=== PATIENT | male | born 1985 | race Caucasian/White ===

== ENCOUNTER 2016-12-25 21:37 | Emergency (ER) | payer BC ==
[~2016-12-25] VITALS: Ht 170.2 cm; Wt 72.7 kg
[~2016-12-25 21:37] MED LIST: ONDA4TAB35 PO
[2016-12-25 21:49] VITALS: Ht 170.2 cm; Wt 72.7 kg
[2016-12-25] MEDS ORDERED: KETOROLAC 60 MG INJ IM STA (22:01)
--- NOTE | 2016-12-25 22:10 | ERD ---
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 He states he was running when he jolted his leg forward and heard and felt his ankle snap. He currently reports a 7 out of 10 pain on the pain scale. Pain is throbbing. He denies any numbness or tingling of the ankle or foot. He denies any head injury or loss of consciousness. There are no other symptoms to report at this time. (HILARIO LUCAS PA-C) ROS All systems reviewed and are negative except as per history of present illness. (HILARIO LUCAS PA-C) Medications Home Meds Active Scripts Ondansetron Hcl* (Zofran* ODT) 4 mg -ODT Tab.disper, 4 MG PO Q6 Y for NAUSEA AND /OR VOMITING, #30 TAB Prov:BJORN JOHNSON MD 02/09/16 Allergies Allergies: Coded Allergies: No Known Allergy (Unverified , 02/09/16) PMhx/Soc Medical and Surgical Hx: pt denies Surgical Hx History of Surgery: No Anesthesia Reaction: No Hx Neurological Disorder: No Hx Respiratory Disorders: No Hx Cardiac Disorders: No Hx Psychiatric Problems: No Hx Miscellaneous Medical Probl: Yes (GASTRITIS ) Hx Alcohol Use: Yes (OCCASIONAL) Hx Substance Use: No Hx Tobacco Use: No Smoking Status: Never smoker (HILARIO LUCAS PA-C) FmHx Noncontributory for chief complaint (HILARIO LUCAS PA-C) Physical Exam Vitals Vital Signs Date Time Temp Pulse Resp B/P Pulse Ox O2 Delivery O2 Flow Rate FiO2 12/25/16 21:49 98.1 79 20 156/86 99 (HILARIO LANG) Physical Exam INITIAL VITAL SIGNS: Reviewed by me. GENERAL: Alert and interactive. No acute distress. HEAD: Head is normocephalic and atraumatic. EYES: EOMI. No scleral icterus. No conjunctival injection. ENT: Moist mucosa. NECK: Supple. Full range of motion. RESPIRATORY: Normal respiratory effort. Clear breath sounds bilaterally. No wheezing, rales, or rhonchi. CV: Regular rate and rhythm. Normal S1 S2. No S3 or S4. No murmurs. ABDOMEN: Soft, non-distended, non-tender. No guarding. No rebound. No masses. EXTREMITIES: Tenderness to palpation with associated edema and ecchymosis of the lateral malleolus. There is very limited range of motion of the ankle secondary to pain. The right lower extremity is normal in appearance. SKIN: Warm and dry. NEUROLOGIC: Alert and oriented x 4. Speech is normal. Moves all extremities equally. No motor or sensory deficits noted. (HILARIO LUCAS PA-C) Results 24 hrs Current Medications Medications (Trade) Dose Ordered Sig/Nagi Route PRN Reason Start Time Stop Time Status Last Admin Dose Admin Ketorolac Tromethamine (Toradol) 60 mg ONCE STAT IM 12/25/16 22:01 12/25/16 22:03 DC 12/25/16 22:16 (HILARIO LANG) Procedures/MDM 31-year-old male presents secondary to complaints of left ankle injury which occurred at approximately 8:30 PM today while playing basketball. The patient states he heard a snap. On physical examination there is very limited range of motion secondary to pain of the left ankle. There is tenderness to palpation of the lateral malleolus. I have ordered a left ankle x-ray looking for any signs of fracture or other abnormalities. IM ketorolac 60 mg given in the department. On reevaluation the patient was feeling improved. Three-view x-ray of the left ankle interpreted by radiologist: Primary diagnosis: (HILARIO LUCAS PA-C) X-ray Ankle 3V Interpreted by me: Bones: Posterior tibial fracture Joints: No dislocation Splint Assessment: Neurovascularly intact post splint placement with good fit. Medical decision-makin-year-old male with a posterior tibial fracture. Clinically stable post splint application. Discharged home with orthopedic follow-up. Given strict aftercare instructions regarding his fracture and a splint. (HILARIO LANG) Departure Diagnosis: Primary Impression: Ankle injury Encounter type: initial encounter Laterality: left Qualified Code: S99.912A - Ankle injury, left, initial encounter Condition: Stable Additional Instructions: Follow-up with your primary care physician within 1 week. Return to the emergency department immediately should you have any new or worsening symptoms, uncontrolled fevers, or other unexplained symptoms. Take all medications as directed. HILARIO LUCAS PA-C Dec 25, 2016 22:10 HILARIO LANG Dec 25, 2016 22:54
--- NOTE | 2016-12-25 22:35 | RADRPT ---
PROCEDURE: XR Left Ankle CLINICAL INDICATION: Injury, pain TECHNIQUE: The study is limited to a lateral and an AP view. COMPARISON: None FINDINGS: Osseous structures: There is a slight step-off at cortex at the posterior aspect of the distal left tibial metaphysis. The osseous elements otherwise appear intact. Joint spaces: The ankle mortise is well maintained. Soft tissues: Appear unremarkable. IMPRESSION: 1. There is a slight cortical step-off at the posterior aspect of the distal left tibial metaphysis . This may represent a fracture of uncertain chronicity. Clinical correlation is indicated. 2. The ankle mortise is well maintained. Physician Yoan Date Time Electronically viewed and signed by Physician Yoan on 12/25/2016 22:34 /
[2016-12-25] MEDS ORDERED: HYDR-902 PO (22:55)
[2016-12-25 23:02] VITALS: BP 112/59; PULSE 75; RESP 20; TEMP 98.6
== END 2016-12-25 23:02 | disposition home or self-care (01) ==
LOC: FTE 21:37
DX: S99.912A Unspecified injury of left ankle, initial encounter (principal); X50.1XXA Overexertion from prolonged static or awkward postures, initial encounter; Y92.9 Unspecified place or not applicable
CPT/HCPCS: 73610; J1885; 96372